=== PATIENT | female | born 1980 | race Hispanic/Latino ===

== ENCOUNTER 2016-10-02 23:37 | Emergency (ER) | payer MEDICAID, OTHER ==
[~2016-10-02] VITALS: Ht 162.6 cm; Wt 114.5 kg
[2016-10-02 23:41] VITALS: BP 152/89; PULSE 75; RESP 18; O2SAT 99
--- NOTE | 2016-10-02 23:53 | ED.REPORT ---
HPI-Chest Pain Under 40 Date of Service Oct 02, 2016 ED Provider: Jeremy Dick DO Pt is an otherwise healthy 36 year old female who presents to the ED complaining of substernal chest pain onset 15:00 today. She c/o associated SOB, and pain with inspiration. Pt denies cough. She rates her chest pain as an 8/10 , and reports that it is exacerbated with walking. Pt states, "it feels like someone is pushing on my chest." The pt denies a history blood clots or similar symptoms. Nursing Notes Stated Complaint: CHEST PAIN Chief Complaint: Chest Pain Nursing Notes Reviewed: Yes Allergies: Coded Allergies: No Known Allergies (Verified , 06/18/08) General Time Seen by MD: 23:52 Chief Complaint Chest pain Hx Obtained From: Patient Arrived By: Walk-in Sudden in Onset?: No Onset Occurred: 5 - 8 hours ago Symptom Duration: Since onset Location: : Substernal Quality: Painful, Pressure Radiation: : Does not radiate Severity: Current: Moderate Severity: Maximum: Moderate Recent Healthcare: No recent doctor visit, No recent hospitalization Similar Sx Previous: No Past Medical History Past Medical History None reported Past Surgical History Left ankle Reports: , Cholecystectomy Smoking History Unknown if Ever Smoker Social History Alcohol Use: Denies alcohol use Drug Use: Denies drug use Ambulatory Status Independent Review of Systems Constitutional: Denies: Fever Respiratory: Reports: Shortness of breath, Denies: Non-productive cough Cardiovascular: Reports: Chest pain Complete sys rev & neg: except as marked. Physical Exam Initial Vital Signs Vital Signs (First) Date Time Temp Pulse Resp B/P Pulse Ox O2 Delivery O2 Flow Rate FiO2 10/02/16 23:41 36.7 75 18 152/89 99 Room Air Initial VS: Reviewed Head / Eyes: Atraumatic, Normocephalic Neck: Supple, Full range of motion Abdomen / GI: Soft, Non-tender Extremities: Vascular intact, Neuro intact Skin: Warm, Dry, No cyanosis Neurologic: Alert, Oriented, Nonfocal Psychiatric: Mood/affect normal, Behavior normal General/Constitutional: Awake, Alert Respiratory / Chest: Atraumatic, Breath sounds NL, Breath sounds = bilat Tender chest wall Cardiovascular: Heart rate NL, Regular rhythm, Heart sounds NL Interpretation & Diagnostics Lab Results Interpretation Result Diagram: 10/03/16 0010 10/03/16 0010 Test 10/03/16 00:10 10/03/16 02:58 White Blood Count 12.4th/mm3 (3.8-10.1) Red Blood Count 4.60mil/mm3 (3.90-5.20) Hemoglobin 13.0g/dL (12.0-15.6) Hematocrit 39.5% (35.0-46.0) Mean Corpuscular Volume 85.9fL (81-100) Mean Corpuscular Hemoglobin 28.3pg (27.0-35.0) Mean Corpuscular Hemoglobin Concent 32.9% (32.0-37.0) Red Cell Distribution Width 13.1% (12.3-15.4) Platelet Count 338bil/L (150-400) Neutrophils (%) (Auto) 55.9% (40-74) Lymphocytes (%) (Auto) 35.5% (14-46) Monocytes (%) (Auto) 6.5% (4-12) Eosinophils (%) (Auto) 1.5% (0-5) Basophils (%) (Auto) 0.2% (0-3) D-Dimer < 0.50mg/L FEU (<0.50) Sodium Level 138mEq/L (134-144) Potassium Level 3.8mEq/L (3.5-5.2) Chloride Level 101mEq/L (97-108) Carbon Dioxide Level 23mmol/L (18-29) Blood Urea Nitrogen 12mg/dL (6-20) Creatinine 0.59mg/dL (0.57-1.00) Estimat Glomerular Filtration Rate 165mL/min (>59) Glucose Level 111mg/dL (60-99) Calcium Level 9.5mg/dL (8.5-10.1) Magnesium Level 1.8mg/dL (1.6-2.6) Total Bilirubin 0.2mg/dL (0.0-1.2) Aspartate Amino Transf (AST/SGOT) 26U/L (0-50) Alanine Aminotransferase (ALT/SGPT) 41U/L (0-32) Alkaline Phosphatase 81U/L (25-150) Total Protein 7.9g/dL (6.4-8.4) Albumin 3.9g/dL (3.4-5.0) Troponin T 0.010ug/L (0.0-0.011) ECG Interpretation ECG Interpretation: Sinus rhythm with a rate of 72 Left ventriccular hypertrophy Time: 23:51 Interpreted by: ED physician X-Ray Chest Interpretation Chest Xray Interpretation: Few granulomas View: Portable, 1 view Interpretation / Wet Read by: Wet read ED physician Re-Eval/Medical Decision Med Decision/Clinical Course Healthy 36-year-old female pleuritic chest pain. Heart score is 0. Wells criteria is 0 risk. Pulmonary embolus rule out criteria met. D-dimer negative. She will troponins negative. Pain was fully reproducible deep breathing and chest wall palpation. NSAIDs resolved the pain. SD and PE and dissection ruled out based on pulses criteria and diagnostics of history and physical examination. Place her on a course of NSAIDs and have close outpatient follow-up. Source of Hx: Old records Re-Evaluation/Progress : Time of Eval: 02:51 Re-Evaluation/Progress Note: Pt rechecked. Informed pt of plan for discharge. Pt understands and agrees with plan for discharge. F/U instructions and RTER warnings given. All questions addressed. Counseled Regarding: Diagnosis, Lab results, Need for follow-up, When/why to return to ED Discharge & Departure Primary Impression: Chest pain Chest pain type: unspecified Qualified Code: R07.9 - Chest pain, unspecified Additional Impression: Pleurisy Disposition: Home Discharge Condition All VS Reviewed: Yes Condition: Stable Patient Instructions: Chest Pain (ED), Pleurisy (ED) Additional Instructions: Your heart blood test and ECG are reassuring. There were no signs of blood clot. The x-ray showed no signs of infection Take Naprosyn 2x daily for 5 days for pain. Call your primary care provider tomorrow for a follow up appointment this week. Return to the Emergency Department for any new or worrisome symptoms. Referrals: Nasima Rome MD (PCP) Naomy Attestation Portions of this note were transcribed by Nasima Simpson. IDr. Dick personally performed the history, physical exam and medical decision-making; I reviewed and confirmed the accuracy of the information in the transcribed note. Signed by : Naomy Alexander, 10/02/16. copies to: Nasima Rome MD, Todd P DO Oct 02, 2016 23:53 Nasima Mcdonald Oct 02, 2016 23:58
[2016-10-03 00:20] LABS: BASOPHILS % (AUTO) 0.2 % (0-3); EOSINOPHILS % (AUTO) 1.5 % (0-5); MONOCYTES % (AUTO) 6.5 % (4-12); Mean Corpuscular Hemoglobin 28.3 pg (27.0-35.0); Mean Corpuscular Volume 85.9 fL (81-100); NEUTROPHILS % (AUTO) 55.9 % (40-74); Platelet Count 338 bil/L (150-400)
[2016-10-03 00:43] LABS: TROPONIN T 0.01 ug/L (0.0-0.011)
[2016-10-03] MEDS ORDERED: HYDROmorphone 0.5 mg/0.5 mL iSecure Syringe IVPUSH ONE (00:45)
[2016-10-03 00:56] LABS: Magnesium 1.8 mg/dL (1.6-2.6)
[2016-10-03 03:54] VITALS: BP 115/67; PULSE 79; RESP 22; O2SAT 98
--- NOTE | 2016-10-03 07:38 | DRSVH ---
PROCEDURE: X-RAY CHEST ONE VIEW, PORTABLE ([id number]) INDICATIONS: CHEST PAIN TECHNIQUE: One view of the chest was acquired. COMPARISON: None. FINDINGS: Surgical changes and devices: None. Lungs and pleura: No pleural effusions or pneumothorax. Lungs are clear. Mediastinum: Mediastinal contours appear normal. Heart size is normal. Bones and chest wall: No suspicious bony lesions. Overlying soft tissues appear unremarkable. IMPRESSION: No radiographic evidence of acute cardiopulmonary pathology. Dictated by: Juan Jose Casillas M.D. on 10/03/2016 at 7:36 Approved by: Juan Jose Casillas M.D. on 10/03/2016 at 7:37
== END 2016-10-03 03:55 | disposition home or self-care (01) ==
LOC: SED 23:37
DX: R07.1 Chest pain on breathing (principal); R09.1 Pleurisy; Z90.49 Acquired absence of other specified parts of digestive tract
CPT/HCPCS: 36415; 71010; 80053; 83735; 84484; 85025; 85378; 93005; 96374; 96375; 99285; J1170; J1885